=== PATIENT | female | born 1970 | race American Indian/Alaskan Native ===

== ENCOUNTER 2017-06-30 16:47 | Emergency (ER) | payer BC ==
--- NOTE | 2017-06-30 18:08 | Emergency Department Report ---
Chief Complaint: Allergic Reaction Stated Complaint: THROAT FEELS LIKE ITS CLOSING Time Seen by Provider: 06/30/17 18:00 - HPI History of Present Illness: Patient here reports that she was at work and she has an allergic reaction to something and she had throat swelling and feeling of throat closing up. Patient says she has multiple allergies and she doesn't know what she was allergic to. She said she feels like her face and neck is swollen. Denies any wheezing or stridor. Denies any fever or chills. She says she was coughing but no coughing now. She said the physician at her workplace gave her Decadron and she took some Benadryl. She said it helped a little but she still have that feeling of swollen throat. - ROS Review of Systems: All systems are negative unless stated in HPI above - Exam Vital Signs: Vital Signs 06/30/17 16:58 Temperature 98.2 F Pulse Rate 102 H Respiratory 20 Rate Blood Pressure 187/91 O2 Sat by Pulse 100 Oximetry Physical Exam: Gen.: He is a morbidly obese female that is nontoxic in appearance. Mouth: Moist, positive pharyngeal erythema with mild swelling, uvula is midline and oral airway is patent. No swelling of lips. Neck: No stridor, supple, full range of motion Lungs: Normal work of breathing, no adventitious sounds heard. MSE screening note: Focused history and physical exam performed. Due to findings the following was ordered: ED Medical Decision Making - Medical Decision Making MDM : Patient screened by medical provider and orders for INT, Solu-Medrol, Benadryl, Pepcid for allergic reaction. She is stable and in no acute distress ED Disposition for MSE Condition: Stable Referrals: PRIMARY CARE, [Primary Care Provider] - 3-5 Days
[2017-06-30] MEDS ORDERED: BENADRYL IV ONE (18:09)
[2017-06-30] MEDS ORDERED: PEPCID IV ONE (18:09)
--- NOTE | 2017-06-30 20:50 | Emergency Department Report ---
ED Allergic Reaction HPI - General Chief complaint: Allergic Reaction Stated complaint: THROAT FEELS LIKE ITS CLOSING Time Seen by Provider: 06/30/17 18:00 Source: patient Mode of arrival: Ambulatory Limitations: No Limitations - History of Present Illness Initial Comments: 46-year-old female past medical history hypertension, obesity, multiple allergies presents with complaint of sensation of throat irritation lip swelling and itchiness earlier today. Patient states she was at work and after having lunch she experienced some lip swelling and scratchy throat. 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 Patient states that her lips became slightly swollen earlier today but has since subsided. The physician from the halfway facility here in the ED with her at bedside. On exam patient is awake alert and oriented 3 does not appear to be in acute distress no visible significant angioedema lip or tongue swelling speaking in full sentences no audible wheezing or stridor on exam. Patient is lucid and ambulatory. Upon arrival in triage and received IV Benadryl Pepcid and Solu-Medrol. Patient is unsure what she may have come into contact with which may have induced this lip swelling. Patient states symptoms have significantly improved and her colleague who came to the ED with her also states that her lip swelling has improved since earlier today. Patient states she received IM dose of Decadron at approximately 2 PM. Denies any current chest pain shortness of breath severe scratchy throat lightheadedness or weakness. Patient denies contact with any new food substances pets or medications. States she has been taking amlodipine for blood pressure for a long time. MD Complaint: allergic reaction -: This morning Exposure: unknown Symptoms: itching, facial swelling, lip swelling Severity: moderate Treatment Prior to Arrival: benadryl, steroids Previous Allergy History: angioedema - Related Data Previous Rx's Medication Instructions Recorded Last Taken Type EPINEPHrine [Epipen] 0.3 mg IJ ONCE PRN #1 auto.injct 06/30/17 Unknown Rx Famotidine [Pepcid] 20 mg PO BID PRN #30 tablet 06/30/17 Unknown Rx diphenhydrAMINE [Benadryl CAP] 25 mg PO Q8HR PRN #1 bottle 06/30/17 Unknown Rx predniSONE [Deltasone] 40 mg PO QDAY #10 tab 06/30/17 Unknown Rx Allergies Allergy/AdvReac Type Severity Reaction Status Date / Time chloroquine Allergy Hives Verified 06/30/17 16:58 doxycycline Allergy Swelling Verified 06/30/17 16:58 peanut Allergy Swelling Verified 06/30/17 16:58 ED Review of Systems ROS: Stated complaint: THROAT FEELS LIKE ITS CLOSING Other details as noted in HPI Constitutional: denies: chills, fever Eyes: denies: eye pain, eye discharge, vision change ENT: denies: ear pain, throat pain Respiratory: denies: cough, shortness of breath, wheezing Cardiovascular: denies: chest pain, palpitations Endocrine: no symptoms reported Gastrointestinal: denies: abdominal pain, nausea, diarrhea Genitourinary: denies: urgency, dysuria, discharge Musculoskeletal: denies: back pain, joint swelling, arthralgia Skin: denies: rash, lesions Neurological: denies: headache, weakness, paresthesias Psychiatric: denies: anxiety, depression Hematological/Lymphatic: denies: easy bleeding, easy bruising ED Past Medical Hx - Past Medical History Previous Medical History?: Yes Hx Hypertension: Yes - Surgical History Past Surgical History?: Yes Hx Appendectomy: Yes - Social History Smoking Status: Never Smoker Substance Use Type: None - Medications Home Medications: Home Medications Medication Instructions Recorded Confirmed Last Taken Type EPINEPHrine [Epipen] 0.3 mg IJ ONCE PRN #1 auto.injct 06/30/17 Unknown Rx Famotidine [Pepcid] 20 mg PO BID PRN #30 tablet 06/30/17 Unknown Rx diphenhydrAMINE [Benadryl CAP] 25 mg PO Q8HR PRN #1 bottle 06/30/17 Unknown Rx predniSONE [Deltasone] 40 mg PO QDAY #10 tab 06/30/17 Unknown Rx ED Physical Exam - General Limitations: No Limitations General appearance: alert, in no apparent distress - Head Head exam: Present: atraumatic, normocephalic - Eye Eye exam: Present: normal appearance, PERRL, EOMI - ENT ENT exam: Present: normal orophraynx (oropharynx is open and patent on clinical exam), mucous membranes moist - Neck Neck exam: Present: normal inspection - Respiratory Respiratory exam: Present: normal lung sounds bilaterally. Absent: respiratory distress - Cardiovascular Cardiovascular Exam: Present: regular rate, normal rhythm. Absent: systolic murmur, diastolic murmur, rubs, gallop - GI/Abdominal GI/Abdominal exam: Present: soft, normal bowel sounds - Extremities Exam Extremities exam: Present: normal inspection - Back Exam Back exam: Present: normal inspection - Neurological Exam Neurological exam: Present: alert, oriented X3 - Psychiatric Psychiatric exam: Present: normal affect, normal mood - Skin Skin exam: Present: warm, dry, intact, normal color. Absent: rash ED Course Vital Signs 06/30/17 06/30/17 16:58 21:19 Temperature 98.2 F 98.7 F Pulse Rate 102 H 89 Respiratory 20 18 Rate Blood Pressure 187/91 Blood Pressure 179/90 [Left] O2 Sat by Pulse 100 100 Oximetry ED Medical Decision Making - Medical Decision Making A/P: Allergic reaction, angioedema, asymptomatic hypertension 1-Case discussed with ED attending who also examined the pt 2-patient has had significant improvement of symptoms and is asymptomatic with no clinical signs of angioedema or anaphylaxis or hives at the time of examination. Oropharynx patent. Patient is breathing comfortably on room air vital signs stable. 3-I educated the patient on signs and symptoms of angioedema and advised her to follow-up with an private security guard. I gave her information for [employer] protection specialist. 4- short course prednisone, Claritin, Benadryl, Pepcid, EpiPen when necessary for angioedema. 5- patient has no chest pain palpitations shortness of breath headache abdominal pain and blurry vision or dizziness. I advised her to follow up with her primary care doctor for her hypertension. Critical care attestation.: If time is entered above; I have spent that time in minutes in the direct care of this critically ill patient, excluding procedure time. ED Disposition Clinical Impression: Angioedema Qualifiers: Encounter type: initial encounter Qualified Code(s): T78.3XXA - Angioneurotic edema, initial encounter Allergic reaction Qualifiers: Encounter type: initial encounter Qualified Code(s): T78.40XA - Allergy, unspecified, initial encounter Disposition: - TO HOME OR SELFCARE Is pt being admited?: No Does the pt Need Aspirin: No Condition: Stable Instructions: Epinephrine (Injection), Urticaria (ED), Angioedema (ED) Prescriptions: diphenhydrAMINE [Benadryl CAP] 25 mg PO Q8HR PRN #1 bottle PRN Reason: Allergic Reaction EPINEPHrine [Epipen] 0.3 mg IJ ONCE PRN #1 auto.injct PRN Reason: Angioedema Famotidine [Pepcid] 20 mg PO BID PRN #30 tablet PRN Reason: Allergic Reaction predniSONE [Deltasone] 40 mg PO QDAY #10 tab Referrals: [facility] [Provider Group] - 3-5 Days Forms: Accompanied Note, Work/School Release Form(ED) Time of Disposition: 20:47
[2017-06-30 21:20] VITALS: BP 179/90
== END 2017-06-30 21:20 | disposition home or self-care (01) ==
LOC: ED 16:47
DX: T78.40XA Allergy, unspecified, initial encounter (principal); T78.3XXA Angioneurotic edema, initial encounter; I10 Essential (primary) hypertension; Y92.89 Other specified places as the place of occurrence of the external cause
CPT/HCPCS: 96374; 96375; 99282; J1200; J2930